=== PATIENT | male | born 1965 | race Two or more races ===

== ENCOUNTER 2018-12-06 18:37 | Inpatient (IN) | payer MEDICAID, OTHER ==
[~2018-12-06] VITALS: Ht 180.3 cm; Wt 71.8 kg
[2018-12-06] MEDS ORDERED: SODIUM CHLORIDE 0.9% 1,000 ML IV ONE (19:15)
[2018-12-06] MEDS ORDERED: KETOROLAC 30MG/ML VIAL IV ONE (19:45)
[2018-12-06 20:28] LABS: CHLORIDE 100 mEq/L (98-107)
[2018-12-06] MEDS ORDERED: HYDROCODONE/ACETAMINOPHEN 5/325MG TABLET PO ONE (21:15)
[2018-12-06 21:42] LABS: MEAN CORPUSCULAR HEMOGLOBIN 14.1 pg (28.0-32.0); MEAN CORPUSCULAR VOLUME 54.5 fL (80.0-94.0); MEAN PLATELET VOLUME 7.5 fl (7.4-10.4); PLATELET 610 x1000/uL (130-400); RED BLOOD CELL COUNT 2.82 mill/uL (4.7-6.1); RED CELL DISTRIBUTION WIDTH 20.1 % (11.6-14.6)
[2018-12-06 21:47] LABS: HEMATOCRIT. 15.4 % (42.0-52.0)
[2018-12-06 22:23] LABS: NUCLEATED RED BLOOD CELLS 2 /100 WBC; PLATELET ESTIMATE INCREASED
[2018-12-06] MEDS ORDERED: MORPHINE SULFATE 4 MG/ML CPJ (NOT FOR IM USE) IV ONE (22:45)
[2018-12-06] MEDS ORDERED: CLONIDINE 0.1MG TABLET PO PRN (23:00)
[2018-12-06] MEDS ORDERED: NA PHOS,M-B/NA PHOS,DI-BA ENEMA 118ML PR PRN (23:00)
[2018-12-06] MEDS ORDERED: IPRATROPIUM/ALBUTEROL 0.5-3(2.5)MG/3ML NEB INH PRN (23:00)
[2018-12-06] MEDS ORDERED: DIPHENHYDRAMINE 50MG/ML VIAL IV PRN (23:00)
[2018-12-06] MEDS ORDERED: MAGNESIUM/ALUMINUM HYDROXIDE/SIMETHICONE 30ML UDC PO PRN (23:00)
[2018-12-06] MEDS ORDERED: GUAIFENESIN 200MG/10ML SUGAR FREE UDC PO PRN (23:00)
[2018-12-06] MEDS ORDERED: DOCUSATE SODIUM 100MG CAPSULE PO PRN (23:00)
[2018-12-06 23:30] LABS: PROSTRATE SPECIFIC AG TOTAL 0.77 ng/mL (0.0-4.0)
[2018-12-07] VITALS (27 sets, daily range): BP systolic 111–138; BP diastolic 79–105
[2018-12-07] MEDS: HYDROCODONE/ACETAMINOPHEN 10/325MG TABLET PO PRN ×2 (01:22→06:20)
[2018-12-07 01:46] LABS: CARCINO EMBRYONIC ANTIGEN 2936.8 ng/ml
[2018-12-07] MEDS: SODIUM CHLORIDE 0.9% INJ 3ML FLUSH IVF SCH ×2 (06:20→14:00)
[2018-12-07 08:50] LABS: MEAN CORPUSCULAR HEMOGLOBIN 17.7 pg (28.0-32.0); MEAN CORPUSCULAR VOLUME 59.9 fL (80.0-94.0); MEAN PLATELET VOLUME 8.6 fl (7.4-10.4); PLATELET 530 x1000/uL (130-400); RED BLOOD CELL COUNT 3.63 mill/uL (4.7-6.1); RED CELL DISTRIBUTION WIDTH 27.6 % (11.6-14.6)
[2018-12-07] MEDS: MORPHINE SULFATE 4 MG/ML CPJ (NOT FOR IM USE) IV PRN ×2 (08:58→15:30)
[2018-12-07 09:00] LABS: CHLORIDE 99 mEq/L (98-107)
[2018-12-07] MEDS ORDERED: MORPHINE SULFATE 4 MG/ML CPJ (NOT FOR IM USE) IV PRN (09:00)
[2018-12-07 09:14] LABS: LDL CHOLESTEROL 58 mg/dL (5-100)
[2018-12-07 09:19] LABS: HDL CHOLESTEROL 30 mg/dL (40-59)
[2018-12-07 09:25] LABS: HEMATOCRIT. 21.7 % (42.0-52.0); HEMOGLOBIN. 6.4 g/dL (14.0-18.0)
[2018-12-07] MEDS ORDERED: GADOBENATE DIMEGLUMINE 529 MG/ML 10ML IV ONE ×2 (09:42→10:16)
[2018-12-07] MEDS: DEXAMETHASONE 4MG/ML 1ML VIAL IV SCH ×2 (12:35→18:25)
[2018-12-07 13:06] LABS: NUCLEATED RED BLOOD CELLS 3 /100 WBC
[2018-12-07 13:11] LABS: PLATELET ESTIMATE INCREASED
[2018-12-07] MEDS ORDERED: DIATR MEGLU/DIATRIZOATE SOLN 30ML PO SCH (17:00)
[2018-12-07] MEDS: FUROSEMIDE 40MG TABLET PO SCH (18:25)
[2018-12-07] MEDS ORDERED: IOHEXOL-300 100 ML BOTTLE ONE (20:00)
[2018-12-07 23:28] LABS: HEMATOCRIT 27.9 % (42.0-52.0); HEMOGLOBIN 8.3 g/dL (14.0-18.0)
[2018-12-07 23:34] LABS: INR 1.2; PROTHROMBIN TIME 12.3 sec (9.1-11.1)
[2018-12-08] VITALS (12 sets, daily range): BP systolic 126–147; BP diastolic 81–106
[2018-12-08] MEDS: SODIUM CHLORIDE 0.9% INJ 3ML FLUSH IVF SCH ×4 (00:50→21:10)
[2018-12-08] MEDS: DEXAMETHASONE 4MG/ML 1ML VIAL IV SCH ×5 (00:59→23:06)
[2018-12-08] MEDS: MORPHINE SULFATE 4 MG/ML CPJ (NOT FOR IM USE) IV PRN ×3 (01:00→21:06)
[2018-12-08] MEDS: FUROSEMIDE 40MG TABLET PO SCH (09:02)
[2018-12-08] MEDS ORDERED: FUROSEMIDE 40MG/4ML VIAL IVP SCH (10:45)
[2018-12-08] MEDS ORDERED: MAGNESIUM CITRATE 300ML SOLUTION PO NR (12:00)
[2018-12-08 12:18] LABS: HEMATOCRIT. 28.9 % (42.0-52.0); HEMOGLOBIN. 8.7 g/dL (14.0-18.0); MEAN CORPUSCULAR HEMOGLOBIN 19.7 pg (28.0-32.0); MEAN CORPUSCULAR VOLUME 65.5 fL (80.0-94.0); MEAN PLATELET VOLUME 8.5 fl (7.4-10.4); PLATELET 499 x1000/uL (130-400); RED BLOOD CELL COUNT 4.41 mill/uL (4.7-6.1); RED CELL DISTRIBUTION WIDTH 31.8 % (11.6-14.6)
[2018-12-08 12:23] LABS: CHLORIDE 98 mEq/L (98-107)
[2018-12-08] MEDS: PANTOPRAZOLE 40MG DR TABLET PO SCH (16:59)
[2018-12-08] MEDS: HYDROCODONE/ACETAMINOPHEN 10/325MG TABLET PO PRN (16:59)
[2018-12-08 17:47] LABS: NUCLEATED RED BLOOD CELLS 1 /100 WBC
[2018-12-08 17:48] LABS: PLATELET ESTIMATE INCREASED
[2018-12-09] VITALS (8 sets, daily range): BP systolic 124–155; BP diastolic 82–107
[2018-12-09] MEDS: DEXAMETHASONE 4MG/ML 1ML VIAL IV SCH ×3 (05:24→17:26)
[2018-12-09] MEDS: MORPHINE SULFATE 4 MG/ML CPJ (NOT FOR IM USE) IV PRN ×3 (05:35→17:32)
[2018-12-09] MEDS: SODIUM CHLORIDE 0.9% INJ 3ML FLUSH IVF SCH ×2 (05:36→22:00)
[2018-12-09] MEDS: FUROSEMIDE 40MG TABLET PO SCH (08:35)
[2018-12-09] MEDS: PANTOPRAZOLE 40MG DR TABLET PO SCH (08:36)
[2018-12-09 11:48] LABS: HEMATOCRIT. 28.1 % (42.0-52.0); HEMOGLOBIN. 8.3 g/dL (14.0-18.0); MEAN CORPUSCULAR HEMOGLOBIN 19.5 pg (28.0-32.0); MEAN CORPUSCULAR VOLUME 65.7 fL (80.0-94.0); MEAN PLATELET VOLUME 8.5 fl (7.4-10.4); PLATELET 495 x1000/uL (130-400); RED BLOOD CELL COUNT 4.27 mill/uL (4.7-6.1); RED CELL DISTRIBUTION WIDTH 32.9 % (11.6-14.6)
[2018-12-09 12:06] LABS: CHLORIDE 100 mEq/L (98-107)
[2018-12-09] MEDS: BENAZEPRIL 5MG TABLET PO SCH (12:07)
[2018-12-09] MEDS: OXYCODONE HCL/ACETAMINOPHEN 5/325MG TABLET PO PRN ×2 (14:29→20:45)
[2018-12-09 22:08] LABS: NUCLEATED RED BLOOD CELLS 2 /100 WBC
[2018-12-09 22:09] LABS: PLATELET ESTIMATE INCREASED
[2018-12-10] VITALS: BP 114/81
[2018-12-10] MEDS: MORPHINE SULFATE 4 MG/ML CPJ (NOT FOR IM USE) IV PRN ×4 (00:07→21:09)
[2018-12-10] MEDS: DEXAMETHASONE 4MG/ML 1ML VIAL IV SCH ×4 (00:07→17:31)
[2018-12-10 03:37] VITALS: BP 121/87
[2018-12-10] MEDS: OXYCODONE HCL/ACETAMINOPHEN 5/325MG TABLET PO PRN (03:37)
[2018-12-10] MEDS: SODIUM CHLORIDE 0.9% INJ 3ML FLUSH IVF SCH ×3 (05:27→21:10)
[2018-12-10 08:00] VITALS: BP 130/90
[2018-12-10 08:12] LABS: A/G RATIO 0.8 (0.7-1.7); ALBUMIN 2.6 g/dL (2.9-4.4); ALPHA-1-GLOBULIN 0.3 g/dL (0.0-0.4); ALPHA-2-GLOBULIN 0.7 g/dL (0.4-1.0); BETA GLOBULIN 1.1 g/dL (0.7-1.3); GAMMA GLOBULINS 1.3 g/dL (0.4-1.8); GLOBULIN TOTAL 3.4 g/dL (2.2-3.9); M-SPIKE Not Observed g/dL (Not Observed)
[2018-12-10] MEDS: FUROSEMIDE 40MG TABLET PO SCH (09:09)
[2018-12-10] MEDS: BENAZEPRIL 5MG TABLET PO SCH (09:09)
[2018-12-10] MEDS: FAMOTIDINE 20MG TABLET PO SCH ×2 (09:09→21:09)
[2018-12-10 10:45] LABS: HEMATOCRIT. 29.2 % (42.0-52.0); HEMOGLOBIN. 8.5 g/dL (14.0-18.0); MEAN CORPUSCULAR HEMOGLOBIN 19.3 pg (28.0-32.0); MEAN CORPUSCULAR VOLUME 66.4 fL (80.0-94.0); MEAN PLATELET VOLUME 8.5 fl (7.4-10.4); PLATELET 519 x1000/uL (130-400); RED BLOOD CELL COUNT 4.41 mill/uL (4.7-6.1); RED CELL DISTRIBUTION WIDTH 33.6 % (11.6-14.6)
[2018-12-10 11:14] LABS: CHLORIDE 101 mEq/L (98-107)
[2018-12-10 11:39] LABS: NUCLEATED RED BLOOD CELLS 1 /100 WBC; PLATELET ESTIMATE INCREASED
[2018-12-10 12:00] VITALS: BP 115/72
[2018-12-10] MEDS: HYDROCODONE/ACETAMINOPHEN 5/325MG TABLET PO PRN ×2 (13:36→18:40)
[2018-12-10 16:00] VITALS: BP 126/86
[2018-12-10 20:00] VITALS: BP 123/83
[2018-12-11] VITALS: BP 123/82
[2018-12-11] MEDS: DEXAMETHASONE 4MG/ML 1ML VIAL IV SCH ×4 (00:49→16:57)
[2018-12-11] MEDS: MORPHINE SULFATE 4 MG/ML CPJ (NOT FOR IM USE) IV PRN ×3 (03:43→17:00)
[2018-12-11 04:00] VITALS: BP 119/84
[2018-12-11] MEDS: SODIUM CHLORIDE 0.9% INJ 3ML FLUSH IVF SCH (05:59)
[2018-12-11 08:00] VITALS: BP 118/80
[2018-12-11] MEDS: FUROSEMIDE 40MG TABLET PO SCH ×2 (09:00→21:13)
[2018-12-11] MEDS: BENAZEPRIL 5MG TABLET PO SCH (09:00)
[2018-12-11] MEDS: FAMOTIDINE 20MG TABLET PO SCH ×2 (09:29→21:11)
[2018-12-11] MEDS: OXYCODONE HCL/ACETAMINOPHEN 5/325MG TABLET PO PRN ×2 (11:51→21:13)
[2018-12-11 12:46] VITALS: BP 118/82
[2018-12-11 15:46] VITALS: BP 121/83
[2018-12-11 20:00] VITALS: BP 125/89
[2018-12-11 23:57] LABS: HEMATOCRIT. 23.9 % (42.0-52.0); MEAN CORPUSCULAR HEMOGLOBIN 19.3 pg (28.0-32.0); MEAN CORPUSCULAR VOLUME 67.7 fL (80.0-94.0); MEAN PLATELET VOLUME 8.6 fl (7.4-10.4); PLATELET 436 x1000/uL (130-400); RED BLOOD CELL COUNT 3.52 mill/uL (4.7-6.1); RED CELL DISTRIBUTION WIDTH 34.8 % (11.6-14.6)
[2018-12-12] VITALS (10 sets, daily range): BP systolic 98–123; BP diastolic 70–85
[2018-12-12 00:03] LABS: CHLORIDE 101 mEq/L (98-107)
[2018-12-12 00:04] LABS: HEMOGLOBIN. 6.8 g/dL (14.0-18.0)
[2018-12-12 02:41] LABS: NUCLEATED RED BLOOD CELLS 4 /100 WBC; PLATELET ESTIMATE NORMAL
[2018-12-12] MEDS: SODIUM CHLORIDE 0.9% INJ 3ML FLUSH IVF SCH ×3 (03:18→23:45)
[2018-12-12] MEDS: MORPHINE SULFATE 4 MG/ML CPJ (NOT FOR IM USE) IV PRN ×2 (03:18→20:57)
[2018-12-12] MEDS: DEXAMETHASONE 4MG/ML 1ML VIAL IV SCH (03:18)
[2018-12-12] MEDS ORDERED: DEXAMETHASONE 4MG/ML 1ML VIAL IV SCH (06:00)
[2018-12-12] MEDS: OXYCODONE HCL/ACETAMINOPHEN 5/325MG TABLET PO PRN ×2 (08:57→14:37)
[2018-12-12] MEDS: FAMOTIDINE 20MG TABLET PO SCH ×2 (08:57→23:45)
[2018-12-12] MEDS: BENAZEPRIL 5MG TABLET PO SCH (10:04)
[2018-12-12] MEDS: DIPHENOXYLATE/ATROPINE 2.5/0.025MG TABLET PO PRN ×3 (10:10→18:24)
[2018-12-12 15:51] LABS: HEMATOCRIT 25.5 % (42.0-52.0); HEMOGLOBIN 7.6 g/dL (14.0-18.0); MEAN CORPUSCULAR HEMOGLOBIN 20.7 pg (28.0-32.0); MEAN CORPUSCULAR VOLUME 69.7 fL (80.0-94.0); PLATELET 416 x1000/uL (130-400); RED BLOOD CELL COUNT 3.66 mill/uL (4.7-6.1); RED CELL DISTRIBUTION WIDTH 34.1 % (11.6-14.6)
[2018-12-13] VITALS (8 sets, daily range): BP systolic 92–130; BP diastolic 67–88
[2018-12-13] MEDS: MORPHINE SULFATE 4 MG/ML CPJ (NOT FOR IM USE) IV PRN ×2 (01:42→07:05)
[2018-12-13] MEDS: FAMOTIDINE 20MG TABLET PO SCH (09:22)
[2018-12-13] MEDS: FUROSEMIDE 40MG TABLET PO SCH (09:22)
[2018-12-13] MEDS: OXYCODONE HCL/ACETAMINOPHEN 5/325MG TABLET PO PRN ×2 (09:22→18:15)
[2018-12-13] MEDS: BENAZEPRIL 5MG TABLET PO SCH (09:23)
[2018-12-13 11:24] LABS: HEMOGLOBIN. 7.9 g/dL (14.0-18.0); MEAN CORPUSCULAR HEMOGLOBIN 21.2 pg (28.0-32.0); MEAN CORPUSCULAR VOLUME 70.1 fL (80.0-94.0); MEAN PLATELET VOLUME 8.6 fl (7.4-10.4); PLATELET 373 x1000/uL (130-400); RED BLOOD CELL COUNT 3.71 mill/uL (4.7-6.1); RED CELL DISTRIBUTION WIDTH 33.3 % (11.6-14.6)
[2018-12-13 11:30] LABS: CHLORIDE 102 mEq/L (98-107)
[2018-12-13] MEDS: MORPHINE SULFATE 15MG TABLET SR PO SCH (13:52)
[2018-12-13 14:29] LABS: PLATELET ESTIMATE NORMAL
[2018-12-13] MEDS: SODIUM CHLORIDE 0.9% INJ 3ML FLUSH IVF SCH (15:30)
[2018-12-13] MEDS: DIPHENOXYLATE/ATROPINE 2.5/0.025MG TABLET PO PRN (18:15)
[2018-12-14] MEDS: FAMOTIDINE 20MG TABLET PO SCH ×3 (01:01→20:54)
[2018-12-14] MEDS: MORPHINE SULFATE 15MG TABLET SR PO SCH ×3 (01:02→20:54)
[2018-12-14] MEDS: DIPHENOXYLATE/ATROPINE 2.5/0.025MG TABLET PO PRN ×2 (01:09→11:04)
[2018-12-14 04:00] VITALS: BP 103/61
[2018-12-14 08:00] VITALS: BP_SYST 106; BP_SYST 112; BP_DIAS 62; BP_DIAS 74
[2018-12-14] MEDS: FUROSEMIDE 40MG TABLET PO SCH (09:03)
[2018-12-14] MEDS: BENAZEPRIL 5MG TABLET PO SCH (09:03)
[2018-12-14 12:00] VITALS: BP 122/62
[2018-12-14] MEDS: SODIUM CHLORIDE 0.9% INJ 3ML FLUSH IVF SCH ×2 (13:18→23:03)
[2018-12-14 16:00] VITALS: BP 118/61
[2018-12-14 20:00] VITALS: BP 120/73
[2018-12-15] VITALS: BP 132/91
[2018-12-15 04:00] VITALS: BP 136/82
[2018-12-15] MEDS: SODIUM CHLORIDE 0.9% INJ 3ML FLUSH IVF SCH ×3 (06:44→22:34)
[2018-12-15 08:00] VITALS: BP 113/61
[2018-12-15] MEDS: FAMOTIDINE 20MG TABLET PO SCH ×2 (09:06→20:51)
[2018-12-15] MEDS: FUROSEMIDE 40MG TABLET PO SCH (09:06)
[2018-12-15] MEDS: MORPHINE SULFATE 15MG TABLET SR PO SCH ×2 (09:07→20:51)
[2018-12-15] MEDS: BENAZEPRIL 5MG TABLET PO SCH (09:07)
[2018-12-15 12:00] VITALS: BP 117/82
[2018-12-15 16:00] VITALS: BP 121/66
[2018-12-15] MEDS: DIPHENOXYLATE/ATROPINE 2.5/0.025MG TABLET PO PRN ×2 (18:24→22:33)
[2018-12-15 20:00] VITALS: BP 108/76
[2018-12-15 20:45] LABS: CHLORIDE 102 mEq/L (98-107)
[2018-12-15] MEDS: ACETAMINOPHEN 325MG TABLET PO PRN (20:50)
[2018-12-15 20:51] LABS: HEMATOCRIT. 24.3 % (42.0-52.0); HEMOGLOBIN. 7.3 g/dL (14.0-18.0); MEAN CORPUSCULAR HEMOGLOBIN 21.5 pg (28.0-32.0); MEAN CORPUSCULAR VOLUME 71.4 fL (80.0-94.0); MEAN PLATELET VOLUME 8.5 fl (7.4-10.4); PLATELET 342 x1000/uL (130-400); RED CELL DISTRIBUTION WIDTH 33.3 % (11.6-14.6)
[2018-12-15 21:36] LABS: PLATELET ESTIMATE NORMAL
[2018-12-16] VITALS: BP 107/74
[2018-12-16 04:00] VITALS: BP 105/74
[2018-12-16 08:00] VITALS: BP 118/77
[2018-12-16] MEDS: FUROSEMIDE 40MG TABLET PO SCH (09:22)
[2018-12-16] MEDS: BENAZEPRIL 5MG TABLET PO SCH (09:22)
[2018-12-16] MEDS: MORPHINE SULFATE 15MG TABLET SR PO SCH ×2 (09:23→20:25)
[2018-12-16] MEDS: FAMOTIDINE 20MG TABLET PO SCH ×2 (09:23→20:25)
[2018-12-16] MEDS: DIPHENOXYLATE/ATROPINE 2.5/0.025MG TABLET PO PRN ×3 (09:23→20:24)
[2018-12-16 12:00] VITALS: BP 107/78
[2018-12-16] MEDS: SODIUM CHLORIDE 0.9% INJ 3ML FLUSH IVF SCH ×2 (14:00→22:15)
[2018-12-16] MEDS: MORPHINE SULFATE 4 MG/ML CPJ (NOT FOR IM USE) IV PRN ×2 (15:05→21:32)
[2018-12-16 16:00] VITALS: BP 124/87
[2018-12-17 04:00] VITALS: BP 120/80
[2018-12-17] MEDS: MORPHINE SULFATE 4 MG/ML CPJ (NOT FOR IM USE) IV PRN (05:50)
[2018-12-17] MEDS: SODIUM CHLORIDE 0.9% INJ 3ML FLUSH IVF SCH ×2 (06:07→13:14)
[2018-12-17 08:00] VITALS: BP 97/64
[2018-12-17] MEDS: FUROSEMIDE 40MG TABLET PO SCH (08:57)
[2018-12-17] MEDS: FAMOTIDINE 20MG TABLET PO SCH ×2 (08:57→22:25)
[2018-12-17] MEDS: BENAZEPRIL 5MG TABLET PO SCH (08:58)
[2018-12-17] MEDS: MORPHINE SULFATE 15MG TABLET SR PO SCH ×2 (08:58→22:25)
[2018-12-17] MEDS: DIPHENOXYLATE/ATROPINE 2.5/0.025MG TABLET PO PRN ×2 (09:10→23:28)
[2018-12-17 12:25] VITALS: BP 102/64
[2018-12-17 16:00] VITALS: BP 108/66
[2018-12-17 20:00] VITALS: BP 113/74
[2018-12-18] VITALS: BP 106/66
[2018-12-18 04:00] VITALS: BP 106/78
[2018-12-18] MEDS: SODIUM CHLORIDE 0.9% INJ 3ML FLUSH IVF SCH ×3 (04:07→22:00)
[2018-12-18] MEDS: DIPHENOXYLATE/ATROPINE 2.5/0.025MG TABLET PO PRN ×3 (04:31→21:40)
[2018-12-18 08:00] VITALS: BP 115/80
[2018-12-18] MEDS: FAMOTIDINE 20MG TABLET PO SCH ×2 (09:01→21:40)
[2018-12-18] MEDS: BENAZEPRIL 5MG TABLET PO SCH (09:01)
[2018-12-18] MEDS: MORPHINE SULFATE 15MG TABLET SR PO SCH ×2 (09:01→21:47)
[2018-12-18] MEDS: FUROSEMIDE 40MG TABLET PO SCH (09:01)
[2018-12-18 12:00] VITALS: BP 115/73
[2018-12-18] MEDS ORDERED: MORPHINE SULFATE 15MG TABLET SR PO SCH (15:15)
[2018-12-18 16:00] VITALS: BP 104/62
[2018-12-18 20:00] VITALS: BP 104/72
[2018-12-18] MEDS: ACETAMINOPHEN 325MG TABLET PO PRN (21:47)
[2018-12-19] VITALS: BP 98/70
[2018-12-19 04:00] VITALS: BP 110/77
[2018-12-19] MEDS: SODIUM CHLORIDE 0.9% INJ 3ML FLUSH IVF SCH ×3 (06:00→22:44)
[2018-12-19] MEDS: DIPHENOXYLATE/ATROPINE 2.5/0.025MG TABLET PO PRN ×3 (06:04→21:25)
[2018-12-19] MEDS: MORPHINE SULFATE 15MG TABLET SR PO SCH ×3 (06:04→21:25)
[2018-12-19 08:00] VITALS: BP 108/75
[2018-12-19] MEDS: FAMOTIDINE 20MG TABLET PO SCH ×2 (09:00→21:25)
[2018-12-19] MEDS: FUROSEMIDE 40MG TABLET PO SCH (09:00)
[2018-12-19] MEDS: BENAZEPRIL 5MG TABLET PO SCH (09:00)
[2018-12-19 12:00] VITALS: BP 102/71
[2018-12-19 16:44] VITALS: BP 109/74
[2018-12-19 18:39] LABS: HEMATOCRIT. 21.6 % (42.0-52.0); MEAN CORPUSCULAR HEMOGLOBIN 21.3 pg (28.0-32.0); MEAN CORPUSCULAR VOLUME 71.8 fL (80.0-94.0); MEAN PLATELET VOLUME 7.5 fl (7.4-10.4); PLATELET 537 x1000/uL (130-400); RED BLOOD CELL COUNT 3.01 mill/uL (4.7-6.1); RED CELL DISTRIBUTION WIDTH 31.6 % (11.6-14.6)
[2018-12-19 18:50] LABS: CHLORIDE 101 mEq/L (98-107); HEMOGLOBIN. 6.4 g/dL (14.0-18.0)
[2018-12-19 20:29] LABS: PLATELET ESTIMATE INCREASED
[2018-12-19] MEDS: ACETAMINOPHEN 325MG TABLET PO PRN (22:42)
[2018-12-20] VITALS (10 sets, daily range): BP systolic 101–119; BP diastolic 62–81
[2018-12-20] MEDS: DIPHENOXYLATE/ATROPINE 2.5/0.025MG TABLET PO PRN ×4 (05:21→22:07)
[2018-12-20] MEDS: MORPHINE SULFATE 15MG TABLET SR PO SCH ×3 (05:22→21:04)
[2018-12-20] MEDS: FAMOTIDINE 20MG TABLET PO SCH ×2 (09:03→21:03)
[2018-12-20] MEDS: BENAZEPRIL 5MG TABLET PO SCH (09:03)
[2018-12-20] MEDS: OXYCODONE HCL/ACETAMINOPHEN 5/325MG TABLET PO PRN ×2 (09:04→15:21)
[2018-12-20 09:50] LABS: HEMATOCRIT 23.6 % (42.0-52.0); HEMOGLOBIN 7.4 g/dL (14.0-18.0); MEAN CORPUSCULAR VOLUME 73.1 fL (80.0-94.0); PLATELET 565 x1000/uL (130-400); RED BLOOD CELL COUNT 3.23 mill/uL (4.7-6.1); RED CELL DISTRIBUTION WIDTH 30.2 % (11.6-14.6)
[2018-12-20] MEDS: SODIUM CHLORIDE 0.9% INJ 3ML FLUSH IVF SCH ×2 (13:44→21:04)
[2018-12-20] MEDS ORDERED: LIDOCAINE HCL/EPINEPHRINE 1%-EPI 1:100,000 20 ML VIAL INFIL NR (16:30)
[2018-12-21] VITALS: BP 120/71
[2018-12-21 04:00] VITALS: BP 119/80
[2018-12-21] MEDS: DIPHENOXYLATE/ATROPINE 2.5/0.025MG TABLET PO PRN ×5 (04:12→22:54)
[2018-12-21] MEDS: SODIUM CHLORIDE 0.9% INJ 3ML FLUSH IVF SCH ×3 (05:03→22:00)
[2018-12-21] MEDS: MORPHINE SULFATE 15MG TABLET SR PO SCH ×3 (05:04→21:38)
[2018-12-21 08:00] VITALS: BP 103/74
[2018-12-21] MEDS: BENAZEPRIL 5MG TABLET PO SCH (08:44)
[2018-12-21] MEDS: FAMOTIDINE 20MG TABLET PO SCH ×2 (08:57→21:32)
[2018-12-21] MEDS: OXYCODONE HCL/ACETAMINOPHEN 5/325MG TABLET PO PRN ×2 (09:04→18:55)
[2018-12-21 12:00] VITALS: BP 101/65
[2018-12-21 20:00] VITALS: BP 103/70
[2018-12-22] VITALS: BP 115/75
[2018-12-22 04:00] VITALS: BP 108/77
[2018-12-22] MEDS: DIPHENOXYLATE/ATROPINE 2.5/0.025MG TABLET PO PRN ×4 (04:49→20:29)
[2018-12-22] MEDS: MORPHINE SULFATE 15MG TABLET SR PO SCH ×3 (05:37→22:37)
[2018-12-22] MEDS: SODIUM CHLORIDE 0.9% INJ 3ML FLUSH IVF SCH ×2 (06:00→14:10)
[2018-12-22 08:00] VITALS: BP 107/73
[2018-12-22] MEDS: FAMOTIDINE 20MG TABLET PO SCH ×2 (08:41→20:29)
[2018-12-22] MEDS: OXYCODONE HCL/ACETAMINOPHEN 5/325MG TABLET PO PRN (08:42)
[2018-12-22] MEDS: BENAZEPRIL 5MG TABLET PO SCH (08:42)
[2018-12-22 12:00] VITALS: BP 102/67
[2018-12-22 16:00] VITALS: BP 105/74
[2018-12-22 20:00] VITALS: BP 105/73
[2018-12-22] MEDS: ACETAMINOPHEN 325MG TABLET PO PRN (20:29)
[2018-12-22] MEDS ORDERED: ACETAMINOPHEN 325MG TABLET PO PRN (21:00)
[2018-12-22 21:51] LABS: MEAN CORPUSCULAR HEMOGLOBIN 22.2 pg (28.0-32.0); MEAN PLATELET VOLUME 7.1 fl (7.4-10.4); PLATELET 579 x1000/uL (130-400); RED BLOOD CELL COUNT 2.56 mill/uL (4.7-6.1); RED CELL DISTRIBUTION WIDTH 30.4 % (11.6-14.6)
[2018-12-22 21:55] LABS: HEMOGLOBIN. 5.7 g/dL (14.0-18.0)
[2018-12-22 21:56] LABS: HEMATOCRIT. 18.7 % (42.0-52.0)
[2018-12-22 22:00] LABS: CHLORIDE 104 mEq/L (98-107)
[2018-12-22] MEDS ORDERED: CEFTRIAXONE 1 G PREMIX 50 ML IV SCH (22:00)
[2018-12-22 23:42] LABS: CLARITY URINE CLEAR (CLEAR); COLOR URINE YELLOW (YELLOW); KETONES URINE NEGATIVE (NEGATIVE); LEUKOCYTE ESTERASE URINE TRACE (NEGATIVE); NITRITE URINE POSITIVE (NEGATIVE); OCCULT BLOOD URINE NEGATIVE (NEGATIVE); PH URINE 5.5 (4.5-8.0); PROTEIN URINE NEGATIVE (NEGATIVE); SPECIFIC GRAVITY URINE 1.017 (1.005-1.030)
[2018-12-23] VITALS (13 sets, daily range): BP systolic 93–128; BP diastolic 60–81
[2018-12-23] MEDS: CEFTRIAXONE 1,000 MG in DEXTROSE 5% WATER 50 ML IV SCH ×2 (00:02→21:42)
[2018-12-23 00:05] LABS: PLATELET ESTIMATE SLIGHTLY INCREASED
[2018-12-23] MEDS: DIPHENOXYLATE/ATROPINE 2.5/0.025MG TABLET PO PRN ×4 (01:58→23:17)
[2018-12-23] MEDS: SODIUM CHLORIDE 0.9% INJ 3ML FLUSH IVF SCH ×3 (06:29→13:05)
[2018-12-23] MEDS: MORPHINE SULFATE 15MG TABLET SR PO SCH ×3 (06:36→21:43)
[2018-12-23] MEDS: FAMOTIDINE 20MG TABLET PO SCH ×2 (08:38→21:42)
[2018-12-23] MEDS: BENAZEPRIL 5MG TABLET PO SCH (08:38)
[2018-12-23] MEDS: OXYCODONE HCL/ACETAMINOPHEN 5/325MG TABLET PO PRN ×2 (08:39→18:38)
[2018-12-23 16:27] LABS: BASOPHILS % 0.4 % (0.0-2.0); EOSINOPHILS % 0.4 % (0.0-5.0); HEMATOCRIT. 22.1 % (42.0-52.0); HEMOGLOBIN. 7.1 g/dL (14.0-18.0); LYMPHOCYTES % 11.9 % (20.0-50.0); MEAN CORPUSCULAR HEMOGLOBIN 24.4 pg (28.0-32.0); MEAN CORPUSCULAR VOLUME 76.1 fL (80.0-94.0); MONOCYTES % 5.9 % (2.0-8.0); NEUTROPHILS % 81.4 % (40.0-76.0); PLATELET 579 x1000/uL (130-400); RED CELL DISTRIBUTION WIDTH 27.6 % (11.6-14.6)
[2018-12-23 16:32] LABS: CHLORIDE 104 mEq/L (98-107)
[2018-12-23 17:43] LABS: PLATELET ESTIMATE INCREASED
[2018-12-24] MEDS: DIPHENOXYLATE/ATROPINE 2.5/0.025MG TABLET PO PRN ×4 (03:56→19:53)
[2018-12-24 04:00] VITALS: BP 104/71
[2018-12-24] MEDS ORDERED: OXYCODONE HCL/ACETAMINOPHEN 5/325MG TABLET PO PRN (04:00)
[2018-12-24 08:00] VITALS: BP 99/71
[2018-12-24] MEDS: BENAZEPRIL 5MG TABLET PO SCH (08:45)
[2018-12-24] MEDS: FAMOTIDINE 20MG TABLET PO SCH ×2 (08:56→21:00)
[2018-12-24] MEDS: MORPHINE SULFATE 15MG TABLET SR PO SCH ×3 (10:44→21:40)
[2018-12-24 12:00] VITALS: BP 103/74
[2018-12-24] MEDS: SODIUM CHLORIDE 0.9% INJ 3ML FLUSH IVF SCH ×2 (14:00→21:41)
[2018-12-24 16:00] VITALS: BP 102/78
[2018-12-24] MEDS: OXYCODONE HCL/ACETAMINOPHEN 5/325MG TABLET PO PRN (19:52)
[2018-12-24 20:00] VITALS: BP 110/75
[2018-12-24] MEDS: CEFTRIAXONE 1,000 MG in DEXTROSE 5% WATER 50 ML IV SCH (21:40)
[2018-12-25] VITALS: BP 116/79
[2018-12-25] MEDS: DIPHENOXYLATE/ATROPINE 2.5/0.025MG TABLET PO PRN ×5 (02:12→20:07)
[2018-12-25] MEDS: OXYCODONE HCL/ACETAMINOPHEN 5/325MG TABLET PO PRN ×3 (02:12→19:48)
[2018-12-25 04:00] VITALS: BP 111/80
[2018-12-25] MEDS: MORPHINE SULFATE 15MG TABLET SR PO SCH ×3 (05:35→23:20)
[2018-12-25] MEDS: SODIUM CHLORIDE 0.9% INJ 3ML FLUSH IVF SCH ×3 (05:35→21:01)
[2018-12-25 08:00] VITALS: BP 122/90
[2018-12-25] MEDS: FAMOTIDINE 20MG TABLET PO SCH ×2 (08:19→20:07)
[2018-12-25] MEDS: BENAZEPRIL 5MG TABLET PO SCH (08:19)
[2018-12-25] MEDS: LEVOFLOXACIN 500MG TABLET PO SCH (11:21)
[2018-12-25 12:00] VITALS: BP 105/76
[2018-12-25 16:00] VITALS: BP 94/65
[2018-12-25 20:00] VITALS: BP 116/79
[2018-12-26] VITALS: BP 131/93
[2018-12-26 04:00] VITALS: BP 113/79
[2018-12-26] MEDS: OXYCODONE HCL/ACETAMINOPHEN 5/325MG TABLET PO PRN ×3 (04:08→18:25)
[2018-12-26] MEDS: SODIUM CHLORIDE 0.9% INJ 3ML FLUSH IVF SCH ×3 (06:12→21:27)
[2018-12-26] MEDS: MORPHINE SULFATE 15MG TABLET SR PO SCH (06:43)
[2018-12-26] MEDS ORDERED: POTASSIUM CHLORIDE 20MEQ TABLET SR PO PRN (07:45)
[2018-12-26 08:00] VITALS: BP 108/75
[2018-12-26] MEDS: BENAZEPRIL 5MG TABLET PO SCH (09:00)
[2018-12-26] MEDS: FAMOTIDINE 20MG TABLET PO SCH ×2 (09:57→21:26)
[2018-12-26] MEDS: LEVOFLOXACIN 500MG TABLET PO SCH (10:02)
[2018-12-26 10:31] LABS: HEMATOCRIT. 23.1 % (42.0-52.0); HEMOGLOBIN. 7.3 g/dL (14.0-18.0); MEAN CORPUSCULAR HEMOGLOBIN 24.2 pg (28.0-32.0); MEAN PLATELET VOLUME 6.7 fl (7.4-10.4); PLATELET 716 x1000/uL (130-400); RED CELL DISTRIBUTION WIDTH 29.1 % (11.6-14.6)
[2018-12-26 10:54] LABS: CHLORIDE 105 mEq/L (98-107)
[2018-12-26 12:00] VITALS: BP 117/83
[2018-12-26 12:39] LABS: PLATELET ESTIMATE INCREASED
[2018-12-26 16:00] VITALS: BP 126/90
[2018-12-26 20:00] VITALS: BP 125/87
[2018-12-26] MEDS: MORPHINE SULFATE 30MG TABLET SR PO SCH (21:27)
[2018-12-27] MEDS: OXYCODONE HCL/ACETAMINOPHEN 5/325MG TABLET PO PRN ×3 (01:36→16:44)
[2018-12-27 04:00] VITALS: BP 103/74
[2018-12-27] MEDS: MORPHINE SULFATE 30MG TABLET SR PO SCH ×3 (06:08→21:04)
[2018-12-27] MEDS: SODIUM CHLORIDE 0.9% INJ 3ML FLUSH IVF SCH ×2 (06:09→14:00)
[2018-12-27 08:00] VITALS: BP 118/83
[2018-12-27] MEDS: BENAZEPRIL 5MG TABLET PO SCH (09:41)
[2018-12-27] MEDS: FAMOTIDINE 20MG TABLET PO SCH ×2 (09:41→21:04)
[2018-12-27] MEDS: LEVOFLOXACIN 500MG TABLET PO SCH (11:38)
[2018-12-27 12:00] VITALS: BP 120/86
[2018-12-27 16:00] VITALS: BP 117/86
[2018-12-27 20:00] VITALS: BP 117/87
[2018-12-28] VITALS: BP 100/72
[2018-12-28] MEDS: OXYCODONE HCL/ACETAMINOPHEN 5/325MG TABLET PO PRN ×2 (00:23→09:22)
[2018-12-28 04:00] VITALS: BP 102/75
[2018-12-28] MEDS: MORPHINE SULFATE 30MG TABLET SR PO SCH ×3 (06:17→22:24)
[2018-12-28 08:00] VITALS: BP 114/82
[2018-12-28] MEDS: BENAZEPRIL 5MG TABLET PO SCH (09:00)
[2018-12-28] MEDS: FAMOTIDINE 20MG TABLET PO SCH ×2 (09:21→22:24)
[2018-12-28] MEDS: LEVOFLOXACIN 500MG TABLET PO SCH (10:45)
[2018-12-28 20:00] VITALS: BP 108/79
[2018-12-29] VITALS: BP 103/75
[2018-12-29 04:00] VITALS: BP 110/84
[2018-12-29] MEDS: MORPHINE SULFATE 30MG TABLET SR PO SCH ×3 (06:25→21:46)
[2018-12-29 08:00] VITALS: BP 102/80
[2018-12-29] MEDS: BENAZEPRIL 5MG TABLET PO SCH (09:00)
[2018-12-29] MEDS: FAMOTIDINE 20MG TABLET PO SCH ×2 (09:26→21:47)
[2018-12-29] MEDS: OXYCODONE HCL/ACETAMINOPHEN 5/325MG TABLET PO PRN (09:26)
[2018-12-29] MEDS: LEVOFLOXACIN 500MG TABLET PO SCH (11:55)
[2018-12-29 12:00] VITALS: BP 113/80
[2018-12-29 16:23] LABS: BASOPHILS % 0.5 % (0.0-2.0); EOSINOPHILS % 0.2 % (0.0-5.0); HEMATOCRIT. 23.7 % (42.0-52.0); HEMOGLOBIN. 7.4 g/dL (14.0-18.0); LYMPHOCYTES % 16.2 % (20.0-50.0); MEAN CORPUSCULAR HEMOGLOBIN 23.9 pg (28.0-32.0); MEAN CORPUSCULAR VOLUME 76.6 fL (80.0-94.0); MEAN PLATELET VOLUME 6.8 fl (7.4-10.4); MONOCYTES % 6.4 % (2.0-8.0); NEUTROPHILS % 76.7 % (40.0-76.0); PLATELET 878 x1000/uL (130-400); RED CELL DISTRIBUTION WIDTH 27.9 % (11.6-14.6)
[2018-12-29 16:34] LABS: CHLORIDE 107 mEq/L (98-107)
[2018-12-29 20:00] VITALS: BP 113/80
[2018-12-29] MEDS: DIPHENOXYLATE/ATROPINE 2.5/0.025MG TABLET PO PRN (21:51)
[2018-12-30] VITALS: BP 111/98
[2018-12-30 04:00] VITALS: BP 110/79
[2018-12-30] MEDS: DIPHENOXYLATE/ATROPINE 2.5/0.025MG TABLET PO PRN ×2 (05:17→22:40)
[2018-12-30] MEDS: MORPHINE SULFATE 30MG TABLET SR PO SCH ×3 (05:18→21:01)
[2018-12-30 08:00] VITALS: BP 110/83
[2018-12-30] MEDS: BENAZEPRIL 5MG TABLET PO SCH (09:00)
[2018-12-30] MEDS: FAMOTIDINE 20MG TABLET PO SCH ×2 (10:14→21:01)
[2018-12-30] MEDS: LEVOFLOXACIN 500MG TABLET PO SCH (11:56)
[2018-12-30 12:00] VITALS: BP 111/75
[2018-12-30] MEDS: OXYCODONE HCL/ACETAMINOPHEN 5/325MG TABLET PO PRN (12:18)
[2018-12-30 16:00] VITALS: BP 122/77
[2018-12-30 20:00] VITALS: BP 111/79
[2018-12-30] MEDS: SODIUM CHLORIDE 0.9% INJ 3ML FLUSH IVF SCH (21:03)
[2018-12-31] VITALS: BP 108/75
[2018-12-31 04:00] VITALS: BP 112/80
[2018-12-31] MEDS: MORPHINE SULFATE 30MG TABLET SR PO SCH ×3 (05:01→21:37)
[2018-12-31] MEDS: SODIUM CHLORIDE 0.9% INJ 3ML FLUSH IVF SCH ×2 (05:12→14:00)
[2018-12-31 08:00] VITALS: BP 105/70
[2018-12-31] MEDS: BENAZEPRIL 5MG TABLET PO SCH (08:15)
[2018-12-31] MEDS: FAMOTIDINE 20MG TABLET PO SCH ×2 (08:23→21:36)
[2018-12-31] MEDS: OXYCODONE HCL/ACETAMINOPHEN 5/325MG TABLET PO PRN ×2 (08:23→17:11)
[2018-12-31] MEDS: DIPHENOXYLATE/ATROPINE 2.5/0.025MG TABLET PO PRN (08:23)
[2018-12-31] MEDS ORDERED: LIDOCAINE HCL/EPINEPHRINE 1%-EPI 1:100,000 20 ML VIAL INFIL ONE (11:15)
[2018-12-31 12:00] VITALS: BP 97/61
[2018-12-31] MEDS: LEVOFLOXACIN 500MG TABLET PO SCH (12:07)
[2018-12-31 16:00] VITALS: BP_SYST 109; BP_DIAS 68; BP_DIAS 71
[2018-12-31 20:00] VITALS: BP 110/70
[2019-01-01] VITALS: BP_SYST 107; BP_SYST 98; BP_DIAS 49; BP_DIAS 76
[2019-01-01] MEDS: OXYCODONE HCL/ACETAMINOPHEN 5/325MG TABLET PO PRN (06:10)
[2019-01-01 08:00] VITALS: BP 98/70
[2019-01-01] MEDS: BENAZEPRIL 5MG TABLET PO SCH (09:00)
[2019-01-01] MEDS: FAMOTIDINE 20MG TABLET PO SCH ×2 (09:05→20:23)
[2019-01-01] MEDS: MORPHINE SULFATE 30MG TABLET SR PO SCH ×2 (09:05→20:23)
[2019-01-01] MEDS: LEVOFLOXACIN 500MG TABLET PO SCH (10:52)
[2019-01-01] MEDS: DIPHENOXYLATE/ATROPINE 2.5/0.025MG TABLET PO PRN ×2 (10:56→20:27)
[2019-01-01 12:00] VITALS: BP 90/65
[2019-01-01] MEDS: SODIUM CHLORIDE 0.9% INJ 3ML FLUSH IVF SCH (14:00)
[2019-01-01 16:00] VITALS: BP 123/87
[2019-01-01 20:00] VITALS: BP 105/67
[2019-01-02] VITALS: BP 103/68
[2019-01-02 04:00] VITALS: BP 107/66
[2019-01-02] MEDS: DIPHENOXYLATE/ATROPINE 2.5/0.025MG TABLET PO PRN (04:19)
[2019-01-02] MEDS: OXYCODONE HCL/ACETAMINOPHEN 5/325MG TABLET PO PRN ×2 (04:20→13:54)
[2019-01-02] MEDS: SODIUM CHLORIDE 0.9% INJ 3ML FLUSH IVF SCH ×4 (06:44→22:00)
[2019-01-02 08:00] VITALS: BP 99/70
[2019-01-02] MEDS: BENAZEPRIL 5MG TABLET PO SCH (09:00)
[2019-01-02] MEDS: FAMOTIDINE 20MG TABLET PO SCH ×2 (09:17→20:54)
[2019-01-02] MEDS: MORPHINE SULFATE 30MG TABLET SR PO SCH ×2 (09:19→20:54)
[2019-01-02 12:00] VITALS: BP 113/71
[2019-01-02 20:00] VITALS: BP 113/76
[2019-01-03] VITALS: BP 107/68
[2019-01-03] MEDS: OXYCODONE HCL/ACETAMINOPHEN 5/325MG TABLET PO PRN ×2 (01:44→17:17)
[2019-01-03 04:00] VITALS: BP 110/71
[2019-01-03] MEDS: SODIUM CHLORIDE 0.9% INJ 3ML FLUSH IVF SCH ×2 (05:42→21:32)
[2019-01-03 08:00] VITALS: BP 100/63
[2019-01-03] MEDS: BENAZEPRIL 5MG TABLET PO SCH (09:00)
[2019-01-03] MEDS: MORPHINE SULFATE 30MG TABLET SR PO SCH ×2 (09:27→21:10)
[2019-01-03] MEDS: FAMOTIDINE 20MG TABLET PO SCH ×2 (09:27→21:09)
[2019-01-03] MEDS: DIPHENOXYLATE/ATROPINE 2.5/0.025MG TABLET PO PRN ×2 (09:33→21:09)
[2019-01-03 12:00] VITALS: BP 98/67
[2019-01-03 16:00] VITALS: BP 114/72
[2019-01-03 20:09] VITALS: BP 110/69
[2019-01-04] VITALS (12 sets, daily range): BP systolic 96–118; BP diastolic 65–78
[2019-01-04] MEDS: OXYCODONE HCL/ACETAMINOPHEN 5/325MG TABLET PO PRN ×2 (01:51→18:43)
[2019-01-04] MEDS: SODIUM CHLORIDE 0.9% INJ 3ML FLUSH IVF SCH (05:12)
[2019-01-04 07:51] LABS: BASOPHILS % 0.5 % (0.0-2.0); EOSINOPHILS % 0.6 % (0.0-5.0); LYMPHOCYTES % 13.8 % (20.0-50.0); MEAN CORPUSCULAR HEMOGLOBIN 22.6 pg (28.0-32.0); MEAN CORPUSCULAR VOLUME 74.1 fL (80.0-94.0); MEAN PLATELET VOLUME 6.9 fl (7.4-10.4); MONOCYTES % 6.5 % (2.0-8.0); NEUTROPHILS % 78.6 % (40.0-76.0); PLATELET 811 x1000/uL (130-400); RED BLOOD CELL COUNT 2.54 mill/uL (4.7-6.1); RED CELL DISTRIBUTION WIDTH 26.5 % (11.6-14.6)
[2019-01-04 08:00] LABS: HEMATOCRIT. 18.8 % (42.0-52.0); HEMOGLOBIN. 5.7 g/dL (14.0-18.0)
[2019-01-04 08:38] LABS: CHLORIDE 105 mEq/L (98-107)
[2019-01-04] MEDS: BENAZEPRIL 5MG TABLET PO SCH (09:00)
[2019-01-04] MEDS: MORPHINE SULFATE 30MG TABLET SR PO SCH ×2 (09:19→21:06)
[2019-01-04] MEDS: FAMOTIDINE 20MG TABLET PO SCH ×2 (09:20→21:05)
[2019-01-05] VITALS (7 sets, daily range): BP systolic 110–162; BP diastolic 80–101
[2019-01-05] MEDS: OXYCODONE HCL/ACETAMINOPHEN 5/325MG TABLET PO PRN ×2 (02:38→11:07)
[2019-01-05 03:22] LABS: BASOPHILS % 0.5 % (0.0-2.0); EOSINOPHILS % 0.4 % (0.0-5.0); HEMATOCRIT. 24.7 % (42.0-52.0); HEMOGLOBIN. 7.8 g/dL (14.0-18.0); LYMPHOCYTES % 13.5 % (20.0-50.0); MEAN CORPUSCULAR VOLUME 75.9 fL (80.0-94.0); MEAN PLATELET VOLUME 6.4 fl (7.4-10.4); MONOCYTES % 7.7 % (2.0-8.0); NEUTROPHILS % 77.9 % (40.0-76.0); PLATELET 820 x1000/uL (130-400); RED BLOOD CELL COUNT 3.26 mill/uL (4.7-6.1)
[2019-01-05 07:23] LABS: PLATELET ESTIMATE INCREASED
[2019-01-05] MEDS: BENAZEPRIL 5MG TABLET PO SCH (08:21)
[2019-01-05] MEDS: FAMOTIDINE 20MG TABLET PO SCH ×2 (08:22→21:38)
[2019-01-05] MEDS: MORPHINE SULFATE 30MG TABLET SR PO SCH ×2 (08:22→21:12)
[2019-01-06] VITALS: BP 116/84
[2019-01-06 04:00] VITALS: BP 119/86
[2019-01-06] MEDS: OXYCODONE HCL/ACETAMINOPHEN 5/325MG TABLET PO PRN ×2 (06:40→17:38)
[2019-01-06] MEDS: DIPHENOXYLATE/ATROPINE 2.5/0.025MG TABLET PO PRN ×3 (07:32→22:33)
[2019-01-06 08:00] VITALS: BP 120/84
[2019-01-06] MEDS: MORPHINE SULFATE 30MG TABLET SR PO SCH ×2 (08:31→23:13)
[2019-01-06] MEDS: FAMOTIDINE 20MG TABLET PO SCH ×2 (08:31→22:07)
[2019-01-06] MEDS: BENAZEPRIL 5MG TABLET PO SCH (08:31)
[2019-01-06 12:00] VITALS: BP_SYST 118; BP_SYST 126; BP_DIAS 76; BP_DIAS 89
[2019-01-06 16:00] VITALS: BP_SYST 117; BP_SYST 124; BP_DIAS 82; BP_DIAS 86
[2019-01-06 20:00] VITALS: BP 115/82
[2019-01-07] VITALS: BP 122/80
[2019-01-07] MEDS: MORPHINE SULFATE 30MG TABLET SR PO SCH ×2 (06:01→13:41)
[2019-01-07 08:00] VITALS: BP 114/80
[2019-01-07] MEDS: FAMOTIDINE 20MG TABLET PO SCH (08:54)
[2019-01-07] MEDS: DIPHENOXYLATE/ATROPINE 2.5/0.025MG TABLET PO PRN (08:54)
[2019-01-07] MEDS: OXYCODONE HCL/ACETAMINOPHEN 5/325MG TABLET PO PRN (08:55)
[2019-01-07 12:00] VITALS: BP 119/77
[2019-01-07 16:00] VITALS: BP 105/72
[2019-01-07 18:53] VITALS: BP 105/72
== END 2019-01-07 21:20 | disposition hospice, home (50) | DRG 317 ==
LOC: ER 18:37 → 5EST 22:45 → EDBEDREQSVC 22:49 → EDBEDREQ 22:49 → ENRESERV 23:19 → 6EST 12-10 12:03
PROVIDERS: ADMIT Family Medicine; ATTEND Family Medicine
PROC: 30233N1 Transfusion of Nonautologous Red Blood Cells into Peripheral Vein, Percutaneous Approach (ICD-10-PCS; 2018-12-06)
PROC: 0WBL0ZZ Excision of Lower Back, Open Approach (ICD-10-PCS; principal; 2018-12-21)
PROC: 0KBN0ZZ Excision of Right Hip Muscle, Open Approach (ICD-10-PCS; 2018-12-31)
PROC: 0KBP0ZZ Excision of Left Hip Muscle, Open Approach (ICD-10-PCS; 2018-12-31)
DX: M84.58XA Pathological fracture in neoplastic disease, other specified site, initial encounter for fracture (principal); E43 Unspecified severe protein-calorie malnutrition; L89.153 Pressure ulcer of sacral region, stage 3; R64 Cachexia; C78.7 Secondary malignant neoplasm of liver and intrahepatic bile duct; C79.51 Secondary malignant neoplasm of bone; M48.04 Spinal stenosis, thoracic region; L89.154 Pressure ulcer of sacral region, stage 4; C19 Malignant neoplasm of rectosigmoid junction; N39.0 Urinary tract infection, site not specified; D50.9 Iron deficiency anemia, unspecified; G89.29 Other chronic pain; J98.11 Atelectasis; I10 Essential (primary) hypertension; K56.41 Fecal impaction; M19.90 Unspecified osteoarthritis, unspecified site; M47.816 Spondylosis without myelopathy or radiculopathy, lumbar region; B96.20 Unspecified Escherichia coli [E. coli] as the cause of diseases classified elsewhere; C21.0 Malignant neoplasm of anus, unspecified; Z51.5 Encounter for palliative care; M48.061 Spinal stenosis, lumbar region without neurogenic claudication; W01.0XXA Fall on same level from slipping, tripping and stumbling without subsequent striking against object, initial encounter; Z74.01 Bed confinement status; Z82.49 Family history of ischemic heart disease and other diseases of the circulatory system; Z80.3 Family history of malignant neoplasm of breast; Z85.048 Personal history of other malignant neoplasm of rectum, rectosigmoid junction, and anus; Z91.19 Patient's noncompliance with other medical treatment and regimen; Z68.22 Body mass index [BMI] 22.0-22.9, adult; Y93.89 Activity, other specified; Y92.89 Other specified places as the place of occurrence of the external cause; Y99.8 Other external cause status
CPT/HCPCS: 36415; 36430; 71045; 71260; 72131; 72158; 74018; 74177; 80048; 80061; 82378; 83880; 83930; 83935; 84134; 84153; 84155; 84165; 84484; 85014; 85018; 85027; 85049; 85384; 86850; 86900; 86920; 87077; 87186; 87493; 93005; 93970; 96361; 96374; 96375; 97162; 99285; A9577; C1893; J0696; J1100; J1200; J1885; J2270; J3490; J7030; J7040; J7042; J7050; J7060; P9016; Q9967; G0103